=== PATIENT | female | born 1990 | race Caucasian/White ===

== ENCOUNTER 2017-06-27 08:28 | Day surgery (SDC) | payer OTHER ==
[2017-06-26 13:22] VITALS: BMI 34.9
[~2017-06-27 08:28] MED LIST: LACTATED RINGERS 1,000 ML IV SCH
[2017-06-27 08:55] VITALS: RESP 16; TEMP 97.8
[2017-06-27] MEDS ORDERED: LIDOCAINE 1% 20 ML VIAL (10MG/ML) FOR IV START INTRADERMA ONE (09:24)
[2017-06-27] MEDS ORDERED: PROPOFOL 10 MG/ML 20 ML VIAL IV ONE (09:58)
[2017-06-27] MEDS ORDERED: LIDOCAINE 1% INJ 10MG/ML (20 ML MDV) ONE (09:58)
--- NOTE | 2017-06-27 09:59 | P.GSHP ---
History of Present Illness H&P Date: 06/27/17 Chief Complaint: Diarrhea This a 26-year-old female who's had chronic issues with diarrhea. Patient is today for colonoscopy. Past Medical History Past Medical History: No Reported History Additional Past Medical History / Comment(s): sharp lower abd pain with tar colored stools History of Any Multi-Drug Resistant Organisms: None Reported Past Surgical History: Orthopedic Surgery, Tonsillectomy Additional Past Surgical History / Comment(s): tendon repair right knee,laser proc left eye Past Anesthesia/Blood Transfusion Reactions: No Reported Reaction Additional Past Anesthesia/Blood Transfusion Reaction / Comment(s): no hx blood transfusion Smoking Status: Current every day smoker - Past Family History Mother Family Medical History: No Reported History Father Family Medical History: No Reported History Medications and Allergies Home Medications Medication Instructions Recorded Confirmed Type New Stomach Med 1 tab PO DIRECTED 06/26/17 06/27/17 History Ciprofloxacin HCl [Cipro] 500 mg PO Q12HR 06/27/17 06/27/17 History metroNIDAZOLE [Flagyl] 500 mg PO TID 06/27/17 06/27/17 History Allergies Allergy/AdvReac Type Severity Reaction Status Date / Time Penicillins Allergy Anaphylaxis Verified 06/27/17 08:59 Surgical - Exam Vital Signs Temp Pulse Resp BP Pulse Ox 97.8 F 80 16 106/61 97 06/27/17 08:54 06/27/17 08:54 06/27/17 08:54 06/27/17 08:54 06/27/17 08:54 - General well developed - Eyes PERRL - ENT normal pinna - Neck no masses - Respiratory normal expansion - Cardiovascular Rhythm: regular - Abdomen Mild periumbilical pain Abdomen: soft, non tender Assessment and Plan Assessment: Chronic diarrhea. We'll perform colonoscopy.
--- NOTE | 2017-06-27 10:13 | P.OP ---
Date of Procedure: 06/27/17 Preoperative Diagnosis: Diarrhea Postoperative Diagnosis: Colitis of entire colon Procedure(s) Performed: Colonoscopy Anesthesia: MAC Surgeon: Ayden Isabel Pathology: other (Biopsies of right, transverse, left, sigmoid and rectum) Condition: stable Disposition: PACU Description of Procedure: The patient's placed on the endoscopy table in the lateral position. She received IV sedation. Digital rectal exam was performed which revealed no abnormalities. The flexible colonoscope was then placed patient anus and passed throughout the entire colon. The entire colon was inflamed. The mucosa appeared to be erythematous and friable. The scope was then withdrawn and a biopsy the right colon and transverse colon was performed. The mucosa was inflamed. The scope was then brought back into the descending and sigmoid colon there is mild diverticular changes. The mucosa of the descending and sigmoid colon was biopsied. The scope was then brought back the rectum and this was inflamed and a biopsies performed. Patient was then sent to recovery room.
[2017-06-27 10:33] VITALS: BP 110/68; PULSE 70
== END 2017-06-27 10:53 | disposition home or self-care (01) ==
LOC: ORWHC2ENDO 08:28
PROVIDERS: ATTEND Surgery
DX: K52.9 Noninfective gastroenteritis and colitis, unspecified (principal); K57.30 Diverticulosis of large intestine without perforation or abscess without bleeding; F17.200 Nicotine dependence, unspecified, uncomplicated; Z88.0 Allergy status to penicillin
CPT/HCPCS: 45380; 81025; 88305; J2001; J2704

== ENCOUNTER → 2018-03-14 | Outpatient (CLI) | payer OTHER ==
--- NOTE | 2018-03-14 13:55 | XR ---
EXAMINATION TYPE: XR chest 2V DATE OF EXAM: 03/14/2018 COMPARISON: None HISTORY: 27-year-old female with cough TECHNIQUE: Frontal and lateral views FINDINGS: The cardiomediastinal silhouette, aorta, and pulmonary vasculature are within normal limits. Hazy low er lung densities related to overlying soft tissue. No consolidation or pleural effusion. IMPRESSION: No acute cardiopulmonary process.
== END | disposition home or self-care (01) ==
LOC: RADXRMAIN 13:01
PROVIDERS: ATTEND Family Medicine
DX: R05 Cough (principal)
CPT/HCPCS: 71046

== ENCOUNTER 2018-05-20 01:44 | Emergency (ER) | payer OTHER ==
[2018-05-20] MEDS ORDERED: SODIUM CHLORIDE 0.9% 1,000 ML IV STA (02:48)
[2018-05-20 03:21] LABS: Basophils % (A) 0 %; Eosinophils # (A) 0.2 k/uL (0-0.7); Eosinophils % (A) 2 %; HCT 42.7 % (34.0-46.0); Lymphocytes # (A) 2.5 k/uL (1.0-4.8); Lymphocytes % (A) 28 %; MCH 28.9 pg (25.0-35.0); MCHC 32.8 g/dL (31.0-37.0); MCV 88.1 fL (80.0-100.0); Mean Platelet Volume 6.8; Monocytes # (A) 0.5 k/uL (0-1.0); Monocytes % (A) 6 %; Neutrophils # (A) 5.6 k/uL (1.3-7.7); Neutrophils % (A) 62 %; Platelet Count 311 k/uL (150-450); RBC 4.84 m/uL (3.80-5.40); RDW 13.2 % (11.5-15.5)
[2018-05-20 03:30] LABS: ALT 44 U/L (9-52); AST 24 U/L (14-36); Albumin 3.9 g/dL (3.5-5.0); Alkaline Phosphatase 49 U/L (38-126); Anion Gap 11 mmol/L; Blood Urea Nitrogen 9 mg/dL (7-17); Calcium 9.4 mg/dL (8.4-10.2); Carbon Dioxide 20 mmol/L (22-30); Chloride 107 mmol/L (98-107); Glucose 79 mg/dL (74-99); Lipase 128 U/L (23-300); Potassium 4.3 mmol/L (3.5-5.1); Sodium 138 mmol/L (137-145); Total Bilirubin 0.3 mg/dL (0.2-1.3); Total Protein 6.6 g/dL (6.3-8.2)
[2018-05-20 03:46] LABS: Amylase <30 U/L (30-110)
[2018-05-20 04:43] LABS: HCG,Quantitative Serum 85788.4 mIU/mL
--- NOTE | 2018-05-20 04:50 | US ---
EXAMINATION TYPE: Transabdominal DATE OF EXAM: 08/28/17 COMPARISON: NONE CLINICAL HISTORY: Pain. Spotting EXAM PERFORMED: Transabdominal (TA) EXAM MEASUREMENTS: GESTATIONAL AGE / DATING Physician Established: (10 weeks/2 days) EDC: 12/14/2018 Dates by LMP: (10 weeks/2 days) EDC: 12/14/2018 Dates by First Scan: No previous this is first scan Dates by Current Scan for: (10 weeks/1 days) EDC: 12/15/2018 MATERNAL ANATOMY Uterus: 10.8 x 6.7 x 8.1 cm Right Ovary: 5.5 x 3.7 x 3.0 cm Left Ovary: 4.5 x 2.4 x 3.2 cm Post CDS / Adnexa: wnl Presence of free fluid: No Presence of corpus luteal cyst: Right ovary measuring 2.6 x 2.6 x 2.4 cm Presence of subchorionic bleed: Yes, measuring 2.4 x 0.7 x 1.0 cm GESTATION / SURVEY CRL: 3.3 cm (10 weeks/1 days) Yolk Sac (normal less than 6mm): 5 mm Heart Rate: 168 bpm Rhythm: Normal IUP: Viable IUP Date of LMP: 03/09/2018 Beta HcG (if available): Not available at this time Viable IUP, measurements consistent with dates. Probable subchorionic bleed IMPRESSION: The ultrasound gestational age is 10 weeks 1 day. Small subchorionic 23 x 7 mm hemorrhage.
--- NOTE | 2018-05-20 05:19 | ED ---
General Adult HPI - General Chief complaint: Vaginal Bleeding Stated complaint: Vaginal Bleeding 10 wks Time Seen by Provider: 05/20/18 02:47 Source: patient, RN notes reviewed Mode of arrival: ambulatory Limitations: no limitations - History of Present Illness Initial comments: 27-year-old female presents to the emergency department for a chief complaint of vaginal bleeding and cramping times 6 hours. Patient states the bleeding is minor but when she wipes she notices blood. She denies soaking a pad. Patient denies any nausea or vomiting. She denies any significant pain other than cramping. Patient states she is concerned about the . Patient states she has had a confirmed intrauterine by ultrasound. Patient has no other complaints at this time including shortness of breath, chest pain, nausea or vomiting, headache, or visual changes. - Related Data Home Medications Medication Instructions Recorded Confirmed New Stomach Med 1 tab PO DIRECTED 06/26/17 06/27/17 Ciprofloxacin HCl [Cipro] 500 mg PO Q12HR 06/27/17 06/27/17 metroNIDAZOLE [Flagyl] 500 mg PO TID 06/27/17 06/27/17 Previous Rx's Medication Instructions Recorded predniSONE 50 mg PO DAILY #60 tablet 06/27/17 Allergies Allergy/AdvReac Type Severity Reaction Status Date / Time Penicillins Allergy Anaphylaxis Verified 05/20/18 01:48 Review of Systems ROS Statement: Those systems with pertinent positive or pertinent negative responses have been documented in the HPI. ROS Other: All systems not noted in ROS Statement are negative. Past Medical History Past Medical History: No Reported History Additional Past Medical History / Comment(s): sharp lower abd pain with tar colored stools History of Any Multi-Drug Resistant Organisms: None Reported Past Surgical History: Orthopedic Surgery, Tonsillectomy Additional Past Surgical History / Comment(s): tendon repair right knee,laser proc left eye Past Anesthesia/Blood Transfusion Reactions: No Reported Reaction Additional Past Anesthesia/Blood Transfusion Reaction / Comment(s): no hx blood transfusion Past Psychological History: No Psychological Hx Reported Smoking Status: Current every day smoker - Past Family History Mother Family Medical History: No Reported History Father Family Medical History: No Reported History General Exam Limitations: no limitations General appearance: alert, in no apparent distress Head exam: Present: atraumatic, normocephalic, normal inspection Eye exam: Present: normal appearance, PERRL, EOMI. Absent: scleral icterus, conjunctival injection, periorbital swelling ENT exam: Present: normal exam, mucous membranes moist Neck exam: Present: normal inspection, full ROM. Absent: tenderness, meningismus, lymphadenopathy Respiratory exam: Present: normal lung sounds bilaterally. Absent: respiratory distress, wheezes, rales, rhonchi, stridor Cardiovascular Exam: Present: regular rate, normal rhythm, normal heart sounds. Absent: systolic murmur, diastolic murmur, rubs, gallop, clicks GI/Abdominal exam: Present: soft, normal bowel sounds. Absent: distended, tenderness, guarding, rebound, rigid External exam: Present: normal external exam. Absent: erythema, swelling, lesions, lacerations, ecchymosis Speculum exam: Present: normal speculum exam. Absent: erythema, vaginal discharge, cervical discharge, vaginal bleeding (No bleeding noted), foreign body, tissue, laceration By manual exam: Present: normal by manual exam. Absent: cervical motion tenderness, adnexal tenderness, adnexal mass, uterine enlargement, uterine tenderness Neurological exam: Present: alert, oriented X3, CN II-XII intact Psychiatric exam: Present: normal affect, normal mood Course Vital Signs 05/20/18 01:45 Temperature 98.1 F Pulse Rate 76 Respiratory 16 Rate Blood Pressure 105/71 O2 Sat by Pulse 96 Oximetry Medical Decision Making - Medical Decision Making 27-year-old female currently 10 weeks presents to the emergency department for a chief complaint of vaginal bleeding. This has been ongoing for the past 6 hours. Patient states she notices blood when she wiped herself. She also admits to lower abdominal cramping. She states cramping is improved somewhat. Vitals are within acceptable limits. On exam patient is well- appearing. patient does not have any significant abdominal tenderness. Speculum exam does not reveal any evidence of blood. Gonorrhea and chlamydia were cultured.CBC and CMP are unremarkable. Beta hCG 85,788. Patient has a positive blood type, does not need RhoGAM. Ultrasound shows a small subchorionic hemorrhage. Gestational age is 10 weeks 1 day with a heart rate of 168. At this time patient is having a threatened miscarriage. Patient will repeat beta hCG in 2 days. She will follow up with [employer] [employer] TECHNICIAN Dr. Sharma. She will return here if she has any worsening symptoms. All questions were answered patient feels comfortable going home. - Lab Data Result diagrams: 05/20/18 02:10 05/20/18 02:10 Lab Results 05/20/18 05/20/18 05/20/18 Range/Units 02:10 02:10 02:10 WBC 9.0 (3.8-10.6) k/uL RBC 4.84 (3.80-5.40) m/uL Hgb 14.0 (11.4-16.0) gm/dL Hct 42.7 (34.0-46.0) % MCV 88.1 (80.0-100.0) fL MCH 28.9 (25.0-35.0) pg MCHC 32.8 (31.0-37.0) g/dL RDW 13.2 (11.5-15.5) % Plt Count 311 (150-450) k/uL Neutrophils % 62 % Lymphocytes % 28 % Monocytes % 6 % Eosinophils % 2 % Basophils % 0 % Neutrophils # 5.6 (1.3-7.7) k/uL Lymphocytes # 2.5 (1.0-4.8) k/uL Monocytes # 0.5 (0-1.0) k/uL Eosinophils # 0.2 (0-0.7) k/uL Basophils # 0.0 (0-0.2) k/uL Sodium 138 (137-145) mmol/L Potassium 4.3 (3.5-5.1) mmol/L Chloride 107 (98-107) mmol/L Carbon Dioxide 20 L (22-30) mmol/L Anion Gap 11 mmol/L BUN 9 (7-17) mg/dL Creatinine 0.56 (0.52-1.04) mg/dL Est GFR (CKD-EPI)AfAm >90 (>60 ml/min/1.73 sqM) Est GFR (CKD-EPI)NonAf >90 (>60 ml/min/1.73 sqM) Glucose 79 (74-99) mg/dL Calcium 9.4 (8.4-10.2) mg/dL Total Bilirubin 0.3 (0.2-1.3) mg/dL AST 24 (14-36) U/L ALT 44 (9-52) U/L Alkaline Phosphatase 49 (38-126) U/L Total Protein 6.6 (6.3-8.2) g/dL Albumin 3.9 (3.5-5.0) g/dL Amylase <30 L (30-110) U/L Lipase 128 (23-300) U/L HCG, Quant 07798.4 mIU/mL Blood Type A Positive Blood Type Confirm Blood Type Recheck CABO Indicated 05/20/18 Range/Units 03:38 WBC (3.8-10.6) k/uL RBC (3.80-5.40) m/uL Hgb (11.4-16.0) gm/dL Hct (34.0-46.0) % MCV (80.0-100.0) fL MCH (25.0-35.0) pg MCHC (31.0-37.0) g/dL RDW (11.5-15.5) % Plt Count (150-450) k/uL Neutrophils % % Lymphocytes % % Monocytes % % Eosinophils % % Basophils % % Neutrophils # (1.3-7.7) k/uL Lymphocytes # (1.0-4.8) k/uL Monocytes # (0-1.0) k/uL Eosinophils # (0-0.7) k/uL Basophils # (0-0.2) k/uL Sodium (137-145) mmol/L Potassium (3.5-5.1) mmol/L Chloride (98-107) mmol/L Carbon Dioxide (22-30) mmol/L Anion Gap mmol/L BUN (7-17) mg/dL Creatinine (0.52-1.04) mg/dL Est GFR (CKD-EPI)AfAm (>60 ml/min/1.73 sqM) Est GFR (CKD-EPI)NonAf (>60 ml/min/1.73 sqM) Glucose (74-99) mg/dL Calcium (8.4-10.2) mg/dL Total Bilirubin (0.2-1.3) mg/dL AST (14-36) U/L ALT (9-52) U/L Alkaline Phosphatase (38-126) U/L Total Protein (6.3-8.2) g/dL Albumin (3.5-5.0) g/dL Amylase (30-110) U/L Lipase (23-300) U/L HCG, Quant mIU/mL Blood Type Blood Type Confirm A Positive Blood Type Recheck Disposition Clinical Impression: Threatened miscarriage, Subchorionic bleed Disposition: HOME SELF-CARE Condition: Good Instructions: Threatened Miscarriage (ED) Additional Instructions: Repeat blood work in 2 days. Follow up with [facility] in one to 2 days. Return to the emergency department if you have any worsening symptoms. Is patient prescribed a controlled substance at d/c from ED?: No Referrals: Elio Groves MD [Primary Care Provider] - 1-2 days Nino Sharma DO [REFERRING] - 1-2 days Time of Disposition: 05:18
[2018-05-20 05:43] VITALS: BP 99/70; PULSE 85; RESP 20; TEMP 98.2
== END 2018-05-20 05:41 | disposition home or self-care (01) ==
LOC: EC 01:44
DX: O20.0 Threatened abortion (principal); Z67.90 Unspecified blood type, Rh positive; O99.331 Smoking (tobacco) complicating pregnancy, first trimester; F17.200 Nicotine dependence, unspecified, uncomplicated; Z88.0 Allergy status to penicillin; Z79.899 Other long term (current) drug therapy; Z3A.10 10 weeks gestation of pregnancy
CPT/HCPCS: 36415; 76801; 80053; 82150; 83690; 84702; 85025; 86900; 86901; 96360; 99284

== ENCOUNTER 2018-12-30 20:37 | Emergency (ER) | payer OTHER ==
[2018-12-30] MEDS ORDERED: SODIUM CHLORIDE 0.9% 1,000 ML IV STA (21:03)
[2018-12-30] MEDS ORDERED: ACETAMINOPHEN TAB 500 MG TAB PO STA (21:03)
--- NOTE | 2018-12-30 21:03 | ED ---
General Adult HPI - General Chief complaint: Vaginal Bleeding Stated complaint: Fever Time Seen by Provider: 12/30/18 20:49 Source: patient Mode of arrival: ambulatory Limitations: no limitations - History of Present Illness Initial comments: Dictation was produced using [employer] dictation software. please excuse any grammatical, word or spelling errors. Chief Complaint: 28-year-old female 5 days status post presents with fever, chills and surgical site pain. History of Present Illness: Patient's 28-year-old female she is 5 days . Patient had a 5 days ago at [facility]. Today she noted that she has been started to have fevers chills. Shows some notes some pain to the right lateral side of the surgical site. Denies any drainage from the surgical site. Patient states she's been passing small clots from her vagina. Denies any purulent discharge from the vagina. Patient states she's been having fever. She measured at home with the baby's thermometer with a temperature 103. Patient otherwise has been feeling unwell. The ROS documented in this emergency department record has been reviewed and confirmed by me. Those systems with pertinent positive or negative responses have been documented in the HPI. All other systems are other negative and/or n oncontributory. PHYSICAL EXAM: General Impression: Alert and oriented x3, not in acute distress HEENT: Normocephalic atraumatic, extra-ocular movements intact, pupils equal and reactive to light bilaterally, mucous membranes moist. Cardiovascular: Heart regular rate and rhythm, S1&S2 audible, no murmurs, rubs or gallops Chest: Lungs clear to auscultation bilaterally, no rhonchi, no wheeze, no rales Abdomen: Bowel sounds present, abdomen soft, non-tender, non-distended, no organomegaly Musculoskeletal: Pulses present and equal in all extremities, no peripheral edema Motor: no focal deficits noted Neurological: CN II-XII grossly intact, no focal motor or sensory deficits noted Skin: Intact with no visualized rashes, surgical site is clean dry and intact. She has tenderness to palpation and some fullness to the right lateral portion of the incision Psych: Normal affect and mood Pelvic exam: Cervical os is closed, no purulent discharge from the os, no adnexal tenderness or cervical motion tenderness ED course: 28-year-old female presents with constitutional symptoms, vaginal bleeding and surgical site pain status post 5 days ago. Vital signs upon arrival shows temperature 90.1, heart rate of 120, rest of vital signs within acceptable limits. Laboratory evaluation obtained. CBC, metabolic panel is grossly unremarkable. Urinalysis shows 6 white blood cells. Urine sent for culture. Has a vaginal ultrasound was obtained showing no retained products of conception. At this point is unclear what patient symptoms are from. Discussed patient case with Dr. Orozco was ammonium hydroxide operator for Dr. Sharma who is patient's deicer tester. She states that there is no clear indication to start any antibiotics at this time. She does agree that patient's clear for discharge. Patient does have an outpatient appointment with Dr. Sharma this week. Return parameters discussed. Patient clear for discharge. - Related Data Home Medications Medication Instructions Recorded Confirmed HYDROcodone/APAP 5-325MG [[place] 1 tab PO Q6HR PRN 12/30/18 12/30/18 5-325] Ibuprofen [Motrin] 600 mg PO Q12H 12/30/18 12/30/18 [id number] Acid 1 cap PO DAILY 12/30/18 12/30/18 [-U Capsule (formulary)] Allergies Allergy/AdvReac Type Severity Reaction Status Date / Time Penicillins Allergy Anaphylaxis Verified 12/30/18 21:15 Review of Systems ROS Statement: Those systems with pertinent positive or pertinent negative responses have been documented in the HPI. ROS Other: All systems not noted in ROS Statement are negative. Past Medical History Past Medical History: No Reported History Additional Past Medical History / Comment(s): sharp lower abd pain with tar colored stools History of Any Multi-Drug Resistant Organisms: None Reported Past Surgical History: Section, Orthopedic Surgery, Tonsillectomy Additional Past Surgical History / Comment(s): tendon repair right knee,laser proc left eye Past Anesthesia/Blood Transfusion Reactions: No Reported Reaction Additional Past Anesthesia/Blood Transfusion Reaction / Comment(s): no hx blood transfusion Past Psychological History: No Psychological Hx Reported Smoking Status: Former smoker Past Alcohol Use History: None Reported Past Drug Use History: None Reported - Past Family History Mother Family Medical History: No Reported History Father Family Medical History: No Reported History General Exam Limitations: no limitations Course Vital Signs 08/05/19 08/05/19 20:41 22:07 Temperature 99.1 F 98.3 F Pulse Rate 120 H 90 Respiratory 20 18 Rate Blood Pressure 134/88 123/78 O2 Sat by Pulse 95 96 Oximetry Medical Decision Making - Lab Data Result diagrams: 12/30/18 21:21 12/30/18 21:21 Lab Results 12/30/18 12/30/18 12/30/18 Range/Units 21:10 21:15 21:21 WBC (3.8-10.6) k/uL RBC (3.80-5.40) m/uL Hgb (11.4-16.0) gm/dL Hct (34.0-46.0) % MCV (80.0-100.0) fL MCH (25.0-35.0) pg MCHC (31.0-37.0) g/dL RDW (11.5-15.5) % Plt Count (150-450) k/uL Neutrophils % % Lymphocytes % % Monocytes % % Eosinophils % % Basophils % % Neutrophils # (1.3-7.7) k/uL Lymphocytes # (1.0-4.8) k/uL Monocytes # (0-1.0) k/uL Eosinophils # (0-0.7) k/uL Basophils # (0-0.2) k/uL Sodium 137 (137-145) mmol/L Potassium 3.9 (3.5-5.1) mmol/L Chloride 108 H (98-107) mmol/L Carbon Dioxide 20 L (22-30) mmol/L Anion Gap 9 mmol/L BUN 11 (7-17) mg/dL Creatinine 0.69 (0.52-1.04) mg/dL Est GFR (CKD-EPI)AfAm >90 (>60 ml/min/1.73 sqM) Est GFR (CKD-EPI)NonAf >90 (>60 ml/min/1.73 sqM) Glucose 91 (74-99) mg/dL Plasma Lactic Acid Oz (0.7-2.0) mmol/L Calcium 8.7 (8.4-10.2) mg/dL Urine Color Yellow Urine Appearance Clear (Clear) Urine pH 7.0 (5.0-8.0) Ur Specific [place] 1.017 (1.001-1.035) Urine Protein Negative (Negative) Urine Glucose (UA) Negative (Negative) Urine Ketones Negative (Negative) Urine Blood Moderate H (Negative) Urine Nitrite Negative (Negative) Urine Bilirubin Negative (Negative) Urine Urobilinogen <2.0 (<2.0) mg/dL Ur Leukocyte Esterase Small H (Negative) Urine RBC 1 (0-5) /hpf Urine WBC 6 H (0-5) /hpf Ur Squamous Epith Cells 5 H (0-4) /hpf Urine Mucus Rare H (None) /hpf Blood Type A Positive Blood Type Recheck No Antibody Screen NEGATIVE Spec Expiration Date 01/02/2019231412/30/18 12/30/18 Range/Units 21:21 21:21 WBC 6.4 (3.8-10.6) k/uL RBC 4.02 (3.80-5.40) m/uL Hgb 11.5 (11.4-16.0) gm/dL Hct 35.2 (34.0-46.0) % MCV 87.5 (80.0-100.0) fL MCH 28.7 (25.0-35.0) pg MCHC 32.8 (31.0-37.0) g/dL RDW 14.2 (11.5-15.5) % Plt Count 280 (150-450) k/uL Neutrophils % 75 % Lymphocytes % 15 % Monocytes % 6 % Eosinophils % 3 % Basophils % 0 % Neutrophils # 4.8 (1.3-7.7) k/uL Lymphocytes # 1.0 (1.0-4.8) k/uL Monocytes # 0.4 (0-1.0) k/uL Eosinophils # 0.2 (0-0.7) k/uL Basophils # 0.0 (0-0.2) k/uL Sodium (137-145) mmol/L Potassium (3.5-5.1) mmol/L Chloride (98-107) mmol/L Carbon Dioxide (22-30) mmol/L Anion Gap mmol/L BUN (7-17) mg/dL Creatinine (0.52-1.04) mg/dL Est GFR (CKD-EPI)AfAm (>60 ml/min/1.73 sqM) Est GFR (CKD-EPI)NonAf (>60 ml/min/1.73 sqM) Glucose (74-99) mg/dL Plasma Lactic Acid Oz 0.8 (0.7-2.0) mmol/L Calcium (8.4-10.2) mg/dL Urine Color Urine Appearance (Clear) Urine pH (5.0-8.0) Ur Specific [place] (1.001-1.035) Urine Protein (Negative) Urine Glucose (UA) (Negative) Urine Ketones (Negative) Urine Blood (Negative) Urine Nitrite (Negative) Urine Bilirubin (Negative) Urine Urobilinogen (<2.0) mg/dL Ur Leukocyte Esterase (Negative) Urine RBC (0-5) /hpf Urine WBC (0-5) /hpf Ur Squamous Epith Cells (0-4) /hpf Urine Mucus (None) /hpf Blood Type Blood Type Recheck Antibody Screen Spec Expiration Date Disposition Clinical Impression: Vaginal bleeding Disposition: HOME SELF-CARE Condition: Good Instructions (If sedation given, give patient instructions): Pelvic Pain in Women (ED) Is patient prescribed a controlled substance at d/c from ED?: No Referrals: None,Stated [Primary Care Provider] - 1-2 days Time of Disposition: 23:21
[2018-12-30 21:33] LABS: Basophils % (A) 0 %; Eosinophils # (A) 0.2 k/uL (0-0.7); Eosinophils % (A) 3 %; HCT 35.2 % (34.0-46.0); HGB 11.5 gm/dL (11.4-16.0); Lymphocytes % (A) 15 %; MCH 28.7 pg (25.0-35.0); MCHC 32.8 g/dL (31.0-37.0); MCV 87.5 fL (80.0-100.0); Monocytes # (A) 0.4 k/uL (0-1.0); Monocytes % (A) 6 %; Neutrophils # (A) 4.8 k/uL (1.3-7.7); Neutrophils % (A) 75 %; Platelet Count 280 k/uL (150-450); RBC 4.02 m/uL (3.80-5.40); RDW 14.2 % (11.5-15.5); WBC 6.4 k/uL (3.8-10.6)
[2018-12-30 21:41] LABS: African American GFR (CKD) >90 (>60 ml/min/1.73 sqM); Anion Gap 9 mmol/L; Blood Urea Nitrogen 11 mg/dL (7-17); Calcium 8.7 mg/dL (8.4-10.2); Carbon Dioxide 20 mmol/L (22-30); Chloride 108 mmol/L (98-107); Glucose 91 mg/dL (74-99); Potassium 3.9 mmol/L (3.5-5.1); Sodium 137 mmol/L (137-145)
[2018-12-30 21:54] LABS: Appearance,Urine Clear (Clear); Bilirubin,Urine Negative (Negative); Blood,Urine Moderate (Negative); Color,Urine Yellow; Glucose,Urine (UA) Negative (Negative); Ketones,Urine Negative (Negative); Leukocyte Esterase,Urine Small (Negative); Mucus,Urine Rare /hpf; Nitrite,Urine Negative (Negative); Protein,Urine Negative (Negative); RBC,Urine 1 /hpf (0-5); Specific Gravity,Urine 1.017 (1.001-1.035); Squamous Epithelial Cell,Urine 5 /hpf (0-4); Urobilinogen,Urine <2.0 mg/dL (<2.0); WBC,Urine 6 /hpf (0-5)
--- NOTE | 2018-12-30 22:25 | US ---
EXAM: US Pelvis Complete, Transabdominal US Pelvis, Transvaginal CLINICAL HISTORY: ITS.REASON US Reason: Pain TECHNIQUE: Real-time transabdominal and transvaginal pelvic ultrasound (complete) with image documentation. Transvaginal imaging was used for better evaluation of the endometrium and adnexa. COMPARISON: No relevant prior studies available. FINDINGS: Uterus/cervix: Uterus (anteverted): 18.2 x 12.3 x 8.5 cm Endometrial Stripe: Not seen No myometrial mass. Right ovary: Not seen No adnexal masses. Normal blood flow. Left ovary: Not seen Free fluid: No free pelvic fluid. Bladder: Unremarkable as visualized. Wall is normal thickness for degree of distention. IMPRESSION: No uterine, ovarian or adnexal masses. Endometrial stripe is not well-visualized ill-defined although no focal masses are seen. No free pelvic fluid may be physiologic.
[2018-12-30 23:37] VITALS: BP 121/58; PULSE 92; RESP 16; TEMP 98.1
== END 2018-12-30 23:37 | disposition home or self-care (01) ==
LOC: EC 20:37
DX: N93.9 Abnormal uterine and vaginal bleeding, unspecified (principal); G89.18 Other acute postprocedural pain; Z88.0 Allergy status to penicillin; Z87.891 Personal history of nicotine dependence; Z98.890 Other specified postprocedural states
CPT/HCPCS: 36415; 76830; 80048; 81001; 83605; 85025; 86850; 86900; 86901; 87040; 87086; 96360; 99284

== ENCOUNTER 2019-10-30 19:54 | Emergency (ER) | payer OTHER ==
[2019-10-30] MEDS ORDERED: SODIUM CHLORIDE 0.9% 1,000 ML IV STA (20:31)
[2019-10-30] MEDS ORDERED: MORPHINE SULFATE 4 MG/ML SYRINGE IV STA (20:31)
[2019-10-30 20:45] LABS: Basophils % (A) 0 %; Eosinophils # (A) 0.2 k/uL (0-0.7); Eosinophils % (A) 2 %; Lymphocytes # (A) 3.2 k/uL (1.0-4.8); Lymphocytes % (A) 31 %; MCH 28.7 pg (25.0-35.0); MCHC 33.3 g/dL (31.0-37.0); MCV 86.4 fL (80.0-100.0); Mean Platelet Volume 8.7; Monocytes # (A) 0.5 k/uL (0-1.0); Monocytes % (A) 5 %; Neutrophils # (A) 6.1 k/uL (1.3-7.7); Neutrophils % (A) 60 %; Platelet Count 271 k/uL (150-450); RBC 4.86 m/uL (3.80-5.40); RDW 13.2 % (11.5-15.5); WBC 10.2 k/uL (3.8-10.6)
--- NOTE | 2019-10-30 20:45 | ED ---
Abdominal Pain HPI - General Chief Complaint: Abdominal Pain Stated Complaint: Abdominal Pain Time Seen by Provider: 10/30/19 20:19 Source: patient Mode of arrival: EMS Limitations: no limitations - History of Present Illness Initial Comments: Carlos a 29-year-old female with history of ulcerative colitis is currently been off medications for 2 years doing to her recent and breast- feeding. She presents the ER today for evaluation of sudden onset stabbing epigastric abdominal pain. Patient reports she ate dinner approximately an hour and half ago she had a seizure solid chips and dip. Approximately 45 minutes later she developed stabbing epigastric abdominal pain she contacted her GI who advised her to come the hospital for further evaluation. Patient has persisted remains in the epigastrium radiates to the back. No associated nausea vomiting or diarrhea. No recent illness. Last ulcerative colitis flare was 2 years ago. - Related Data Home Medications Medication Instructions Recorded Confirmed HYDROcodone/APAP 5-325MG [Pierson 1 tab PO Q6HR PRN 12/30/18 12/30/18 5-325] Ibuprofen [Motrin] 600 mg PO Q12H 12/30/18 12/30/18 [id number] Acid 1 cap PO DAILY 12/30/18 12/30/18 [-U Capsule (formulary)] Allergies Allergy/AdvReac Type Severity Reaction Status Date / Time Penicillins Allergy Anaphylaxis Verified 12/30/18 21:15 Review of Systems ROS Statement: Those systems with pertinent positive or pertinent negative responses have been documented in the HPI. ROS Other: All systems not noted in ROS Statement are negative. Past Medical History Past Medical History: No Reported History Additional Past Medical History / Comment(s): sharp lower abd pain with tar colored stools, colitis History of Any Multi-Drug Resistant Organisms: None Reported Past Surgical History: Section, Orthopedic Surgery, Tonsillectomy Additional Past Surgical History / Comment(s): tendon repair right knee,laser proc left eye Past Anesthesia/Blood Transfusion Reactions: No Reported Reaction Additional Past Anesthesia/Blood Transfusion Reaction / Comment(s): no hx blood transfusion Past Psychological History: No Psychological Hx Reported Smoking Status: Former smoker Past Alcohol Use History: None Reported Past Drug Use History: None Reported - Past Family History Mother Family Medical History: No Reported History Father Family Medical History: No Reported History General Exam - General Exam Comments Initial Comments: Physical Exam GENERAL: Patient is well-developed and well-nourished. Patient is nontoxic and well- hydrated and is in no distress. HENT: Normocephalic, Atraumatic. EYES: PERRL, EOMI PULMONARY: Unlabored respirations. No audible rales rhonchi or wheezing was noted. CARDIOVASCULAR: There is a regular rate and rhythm without any murmurs gallops or rubs. ABDOMEN: Soft and nontender with normal bowel sounds. No McBurneys point tenderness SKIN: Skin is clear with no lesions or rashes and otherwise unremarkable. : Deferred NEUROLOGIC: Patient is alert and oriented x3. Moving all extremities spontaneously MUSCULOSKELETAL: Normal extremities with adequate strength and full range of motion. No lower extremity swelling or edema. No calf tenderness. PSYCHIATRIC: Normal psychiatric evaluation. Limitations: no limitations Course Vital Signs 10/30/19 10/30/19 10/30/19 19:55 19:58 23:49 Temperature 97.6 F 98.7 F Pulse Rate 93 97 Respiratory 18 19 Rate Blood Pressure 138/89 116/82 O2 Sat by Pulse 100 96 Oximetry Medical Decision Making - Medical Decision Making She was seen and evaluated history is obtained from the patient History and physical exam concerning for sudden onset of stabbing epigastric pain that began after eating a meal that did have salad dressing and chips and dip Labs were obtained mild elevation in transaminases mild elevation of lipase Ultrasound was obtained and did reveal large gallstone but no signs of bile duct dilatation or obstruction Patient did receive 2 doses pain medication emergency department reported feeling much better is comfortable with plan for discharge home with antiemetics and pain meds as needed Patient follow up with surgery for outpatient evaluation Return parameters were discussed dietary modifications were discussed with questions pertaining care were answered patient discharged home in stable condition - Lab Data Result diagrams: 10/30/19 20:00 10/30/19 21:19 Lab Results 10/30/19 10/30/19 10/30/19 Range/Units 20:00 20:44 20:44 WBC 10.2 (3.8-10.6) k/uL RBC 4.86 (3.80-5.40) m/uL Hgb 14.0 (11.4-16.0) gm/dL Hct 42.0 (34.0-46.0) % MCV 86.4 (80.0-100.0) fL MCH 28.7 (25.0-35.0) pg MCHC 33.3 (31.0-37.0) g/dL RDW 13.2 (11.5-15.5) % Plt Count 271 (150-450) k/uL Neutrophils % 60 % Lymphocytes % 31 % Monocytes % 5 % Eosinophils % 2 % Basophils % 0 % Neutrophils # 6.1 (1.3-7.7) k/uL Lymphocytes # 3.2 (1.0-4.8) k/uL Monocytes # 0.5 (0-1.0) k/uL Eosinophils # 0.2 (0-0.7) k/uL Basophils # 0.0 (0-0.2) k/uL Sodium (137-145) mmol/L Potassium (3.5-5.1) mmol/L Chloride (98-107) mmol/L Carbon Dioxide (22-30) mmol/L Anion Gap mmol/L BUN (7-17) mg/dL Creatinine (0.52-1.04) mg/dL Est GFR (CKD-EPI)AfAm (>60 ml/min/1.73 sqM) Est GFR (CKD-EPI)NonAf (>60 ml/min/1.73 sqM) Glucose (74-99) mg/dL Calcium (8.4-10.2) mg/dL Total Bilirubin (0.2-1.3) mg/dL AST (14-36) U/L ALT (4-34) U/L Alkaline Phosphatase (38-126) U/L Total Protein (6.3-8.2) g/dL Albumin (3.5-5.0) g/dL Amylase (30-110) U/L Lipase (23-300) U/L Urine Color Light [place] Urine Appearance Cloudy H (Clear) Urine pH 7.0 (5.0-8.0) Ur Specific Thornton 1.020 (1.001-1.035) Urine Protein 1+ H (Negative) Urine Glucose (UA) Negative (Negative) Urine Ketones Trace H (Negative) Urine Blood Moderate H (Negative) Urine Nitrite Negative (Negative) Urine Bilirubin Negative (Negative) Urine Urobilinogen <2.0 (<2.0) mg/dL Ur Leukocyte Esterase Large H (Negative) Urine RBC >182 H (0-5) /hpf Urine WBC 57 H (0-5) /hpf Ur Squamous Epith Cells 2 (0-4) /hpf Urine Bacteria Occasional H (None) /hpf Urine Mucus Rare H (None) /hpf Urine HCG, Qual Not Detected (Not Detectd) 10/30/19 Range/Units 21:19 WBC (3.8-10.6) k/uL RBC (3.80-5.40) m/uL Hgb (11.4-16.0) gm/dL Hct (34.0-46.0) % MCV (80.0-100.0) fL MCH (25.0-35.0) pg MCHC (31.0-37.0) g/dL RDW (11.5-15.5) % Plt Count (150-450) k/uL Neutrophils % % Lymphocytes % % Monocytes % % Eosinophils % % Basophils % % Neutrophils # (1.3-7.7) k/uL Lymphocytes # (1.0-4.8) k/uL Monocytes # (0-1.0) k/uL Eosinophils # (0-0.7) k/uL Basophils # (0-0.2) k/uL Sodium 138 (137-145) mmol/L Potassium 3.2 L (3.5-5.1) mmol/L Chloride 113 H (98-107) mmol/L Carbon Dioxide 18 L (22-30) mmol/L Anion Gap 7 mmol/L BUN 13 (7-17) mg/dL Creatinine 0.64 (0.52-1.04) mg/dL Est GFR (CKD-EPI)AfAm >90 (>60 ml/min/1.73 sqM) Est GFR (CKD-EPI)NonAf >90 (>60 ml/min/1.73 sqM) Glucose 99 (74-99) mg/dL Calcium 8.0 L (8.4-10.2) mg/dL Total Bilirubin 0.3 (0.2-1.3) mg/dL AST 72 H (14-36) U/L ALT 36 H (4-34) U/L Alkaline Phosphatase 64 (38-126) U/L Total Protein 5.8 L (6.3-8.2) g/dL Albumin 3.3 L (3.5-5.0) g/dL Amylase <30 L (30-110) U/L Lipase 398 H (23-300) U/L Urine Color Urine Appearance (Clear) Urine pH (5.0-8.0) Ur Specific Thornton (1.001-1.035) Urine Protein (Negative) Urine Glucose (UA) (Negative) Urine Ketones (Negative) Urine Blood (Negative) Urine Nitrite (Negative) Urine Bilirubin (Negative) Urine Urobilinogen (<2.0) mg/dL Ur Leukocyte Esterase (Negative) Urine RBC (0-5) /hpf Urine WBC (0-5) /hpf Ur Squamous Epith Cells (0-4) /hpf Urine Bacteria (None) /hpf Urine Mucus (None) /hpf Urine HCG, Qual (Not Detectd) Disposition Clinical Impression: Symptomatic cholelithiasis Disposition: HOME SELF-CARE Condition: Stable Instructions (If sedation given, give patient instructions): Biliary Colic (ED), Gallstones (ED) Is patient prescribed a controlled substance at d/c from ED?: No Referrals: Elio Groves MD [Primary Care Provider] - 1-2 days Kai Handy MD [Medical Doctor] - 1-2 days
[2019-10-30] MEDS ORDERED: ONDANSETRON 4 MG/2 ML VIAL IVP STA (20:52)
[2019-10-30 21:06] LABS: Appearance,Urine Cloudy (Clear); Bacteria,Urine Occasional /hpf; Bilirubin,Urine Negative (Negative); Blood,Urine Moderate (Negative); Color,Urine Light Orange; Glucose,Urine (UA) Negative (Negative); Ketones,Urine Trace (Negative); Leukocyte Esterase,Urine Large (Negative); Mucus,Urine Rare /hpf; Nitrite,Urine Negative (Negative); Protein,Urine 1+ (Negative); RBC,Urine >182 /hpf (0-5); Squamous Epithelial Cell,Urine 2 /hpf (0-4); Urobilinogen,Urine <2.0 mg/dL (<2.0); WBC,Urine 57 /hpf (0-5)
--- NOTE | 2019-10-30 21:25 | XR ---
EXAMINATION TYPE: XR ABDOMEN ACUTE W CXR 4 VIEWS DATE OF EXAM: 10/30/2019 COMPARISON: NONE HISTORY: Epigastric pain TECHNIQUE: 2 upright and 2 supine radiographs were obtained. FINDINGS: Chest radiograph: Negative for acute findings. Abdominal radiographs: There is no evidence for pneumoperitoneum. The bowel gas pattern is unremarka ble as there is air throughout nondilated small and large bowel. No sizeable air fluid levels. No ma ss effects are seen. No unusual calcifications. IMPRESSION: No acute radiographic process.
[2019-10-30 21:38] LABS: ALT 36 U/L (4-34); AST 72 U/L (14-36); African American GFR (CKD) >90 (>60 ml/min/1.73 sqM); Albumin 3.3 g/dL (3.5-5.0); Alkaline Phosphatase 64 U/L (38-126); Amylase <30 U/L (30-110); Anion Gap 7 mmol/L; Blood Urea Nitrogen 13 mg/dL (7-17); Carbon Dioxide 18 mmol/L (22-30); Chloride 113 mmol/L (98-107); Glucose 99 mg/dL (74-99); Non-African American GFR(CKD) >90 (>60 ml/min/1.73 sqM); Potassium 3.2 mmol/L (3.5-5.1); Sodium 138 mmol/L (137-145); Total Bilirubin 0.3 mg/dL (0.2-1.3); Total Protein 5.8 g/dL (6.3-8.2)
[2019-10-30] MEDS ORDERED: MORPHINE SULFATE 4 MG/ML SYRINGE IVP STA (23:08)
--- NOTE | 2019-10-30 23:08 | US ---
EXAMINATION TYPE: US gallbladder DATE OF EXAM: 10/30/2019 COMPARISON: CT 2009 CLINICAL HISTORY: abdominal pain, elevated AST/ALT, lipase. Abdominal pain x 3 hours. Elevated AST/AL T, lipase. Diarrhea x 1.5 weeks. EXAM MEASUREMENTS: Liver Length: 16.17 cm Gallbladder Wall: 0.32 cm CBD: 0.37 cm Right Kidney: 10.8 x 5.3 x 5.1 cm Limited due to body habitus. Pancreas: Appears hyperechoic. Tail obscured by overlying bowel gas. Liver: Appears to have a slightly increased echogenicity. Gallbladder: Echogenic focus with posterior shadowing seen within the gallbladder measurin.1 x 2 .0 x 1.1 cm. Evidence for sonographic Huggins's sign: No CBD: Appears wnl. Right Kidney: No hydronephrosis or masses seen IMPRESSION: Large gallstone. No dilated ducts. No focal liver defect.
[2019-10-30] MEDS ORDERED: ONDANSETRON 4 MG ODT STARTER PACK 2 TAB BTL PO STA (23:49)
[2019-10-30] MEDS ORDERED: ACET/COD 300 MG/30 MG STARTER PACK 6 TAB BTL PO STA (23:49)
[2019-10-30 23:50] VITALS: PULSE 97; RESP 19; TEMP 98.7
[2019-10-30 23:51] VITALS: BP 116/82
== END 2019-10-30 23:58 | disposition home or self-care (01) ==
LOC: EC 19:54
DX: K80.20 Calculus of gallbladder without cholecystitis without obstruction (principal); Z88.0 Allergy status to penicillin; Z87.891 Personal history of nicotine dependence
CPT/HCPCS: 36415; 93005; 80053; 82150; 83690; 85025; 81001; 81025; 87086; 74022; 76705; 99285; 96374; 96375; 96376; 96361; J2270; J2405; S0119

== ENCOUNTER 2019-10-31 08:58 | Inpatient (IN) | payer OTHER ==
[2019-10-31] MEDS ORDERED: ACETAMINOPHEN IV (For NPO) 1,000 MG in EMPTY BAG 1 BAG IVPB PRN (11:34)
[2019-10-31] MEDS ORDERED: ONDANSETRON 4 MG/2 ML VIAL IVP PRN (11:35)
[2019-10-31 12:14] LABS: Basophils % (A) 0 %; Eosinophils # (A) 0.2 k/uL (0-0.7); Eosinophils % (A) 3 %; HCT 41.4 % (34.0-46.0); HGB 13.9 gm/dL (11.4-16.0); Lymphocytes # (A) 1.6 k/uL (1.0-4.8); Lymphocytes % (A) 22 %; MCHC 33.6 g/dL (31.0-37.0); MCV 89.2 fL (80.0-100.0); Monocytes # (A) 0.3 k/uL (0-1.0); Monocytes % (A) 5 %; Neutrophils % (A) 69 %; Platelet Count 238 k/uL (150-450); RBC 4.64 m/uL (3.80-5.40); RDW 13.3 % (11.5-15.5); WBC 7.3 k/uL (3.8-10.6)
[2019-10-31] MEDS: SODIUM CHLORIDE 0.9% 1,000 ML IV SCH ×2 (12:15→21:22)
[2019-10-31] MEDS: METOCLOPRAMIDE 5 MG/ML 2 ML VIAL IVP SCH ×2 (12:15→18:43)
[2019-10-31] MEDS: HYDROmorphone 0.5 MG/0.5 ML SYRINGE IVP PRN ×2 (12:21→19:41)
[2019-10-31] MEDS: PANTOPRAZOLE 40 MG/10 ML VIAL IVP SCH (12:25)
[2019-10-31 12:41] LABS: ALT 146 U/L (4-34); AST 109 U/L (14-36); African American GFR (CKD) >90 (>60 ml/min/1.73 sqM); Albumin 3.9 g/dL (3.5-5.0); Alkaline Phosphatase 85 U/L (38-126); Anion Gap 9 mmol/L; Blood Urea Nitrogen 12 mg/dL (7-17); Calcium 8.6 mg/dL (8.4-10.2); Carbon Dioxide 20 mmol/L (22-30); Chloride 111 mmol/L (98-107); Glucose 73 mg/dL (74-99); Non-African American GFR(CKD) >90 (>60 ml/min/1.73 sqM); Potassium 4.2 mmol/L (3.5-5.1); Sodium 140 mmol/L (137-145); Total Bilirubin 0.5 mg/dL (0.2-1.3); Total Protein 6.7 g/dL (6.3-8.2)
--- NOTE | 2019-10-31 18:29 | P.GSCN ---
History of Present Illness Consult date: 10/31/19 Reason for Consult: Acute cholecystitis History of present illness: 29-year-old female was in the ER last night with sudden onset right upper q uadrant pain. Pain radiated to the back. Nausea was present. No vomiting. Pain improved slightly. She was discharged from the ER last night. Liver enzymes were mildly elevated at that time. Ultrasound showed a large gallstone without gallbladder wall thickening. No biliary dilation. She was then admitted to the hospital today because of recurrent/persistent pain. Location is the same. Her liver enzymes have increased further with a normal bili and alkaline phosphatase. ALT and AST are 146 and 109. No change in the color of her skin urine or stool. No history of similar events. No underlying liver disease that she is aware of. Lipase also slightly elevated. Review of Systems The patient denies any acute changes in vision or hearing, no dysphagia or odynophagia, no chest pain or shortness of breath, no dysuria or hematuria, no headache, no runny nose, no rectal bleeding or melena, no unexplained weight loss Past Medical History Past Medical History: No Reported History Additional Past Medical History / Comment(s): ULCERATIVE COLITIS History of Any Multi-Drug Resistant Organisms: None Reported Past Surgical History: Section, Orthopedic Surgery, Tonsillectomy Additional Past Surgical History / Comment(s): tendon repair right knee, laser proc left eye Past Anesthesia/Blood Transfusion Reactions: No Reported Reaction Additional Past Anesthesia/Blood Transfusion Reaction / Comm: no hx blood transfusion Past Psychological History: No Psychological Hx Reported Smoking Status: Former smoker Past Alcohol Use History: None Reported Past Drug Use History: None Reported - Past Family History Mother Family Medical History: No Reported History Additional Family Medical History / Comment(s): CARDIAC ARRYTHMIA Father Family Medical History: Myocardial Infarction ([place]) Medications and Allergies Home Medications Medication Instructions Recorded Confirmed Type Multivitamins, Thera [Multivitamin 1 tab PO DAILY 10/31/19 10/31/19 History (formulary)] Allergies Allergy/AdvReac Type Severity Reaction Status Date / Time Penicillins Allergy Anaphylaxis Verified 10/31/19 11:18 Surgical - Exam Vital Signs Temp Pulse Resp BP Pulse Ox 98.1 F 71 18 114/81 95 10/31/19 09:50 10/31/19 09:50 10/31/19 09:50 10/31/19 09:50 10/31/19 09:50 Physical exam: General: Well-developed, well-nourished HEENT: Normocephalic, sclerae nonicteric Abdomen: Mild right upper quadrant tenderness, nondistended Extremities: No edema Neuro: Alert and oriented Results - Labs 10/31/19 12:05 10/31/19 12:05 Abnormal Lab Results - Last 24 Hours (Table) 10/31/19 Range/Units 12:05 Chloride 111 H (98-107) mmol/L Carbon Dioxide 20 L (22-30) mmol/L Glucose 73 L (74-99) mg/dL AST 109 H (14-36) U/L ALT 146 H (4-34) U/L Diabetes panel 10/31/19 Range/Units 12:05 Sodium 140 (137-145) mmol/L Potassium 4.2 (3.5-5.1) mmol/L Chloride 111 H (98-107) mmol/L Carbon Dioxide 20 L (22-30) mmol/L BUN 12 (7-17) mg/dL Creatinine 0.60 (0.52-1.04) mg/dL Glucose 73 L (74-99) mg/dL Calcium 8.6 (8.4-10.2) mg/dL AST 109 H (14-36) U/L ALT 146 H (4-34) U/L Alkaline Phosphatase 85 (38-126) U/L Total Protein 6.7 (6.3-8.2) g/dL Albumin 3.9 (3.5-5.0) g/dL Calcium panel 10/31/19 Range/Units 12:05 Calcium 8.6 (8.4-10.2) mg/dL Albumin 3.9 (3.5-5.0) g/dL Pituitary panel 10/31/19 Range/Units 12:05 Sodium 140 (137-145) mmol/L Potassium 4.2 (3.5-5.1) mmol/L Chloride 111 H (98-107) mmol/L Carbon Dioxide 20 L (22-30) mmol/L BUN 12 (7-17) mg/dL Creatinine 0.60 (0.52-1.04) mg/dL Glucose 73 L (74-99) mg/dL Calcium 8.6 (8.4-10.2) mg/dL Adrenal panel 10/31/19 Range/Units 12:05 Sodium 140 (137-145) mmol/L Potassium 4.2 (3.5-5.1) mmol/L Chloride 111 H (98-107) mmol/L Carbon Dioxide 20 L (22-30) mmol/L BUN 12 (7-17) mg/dL Creatinine 0.60 (0.52-1.04) mg/dL Glucose 73 L (74-99) mg/dL Calcium 8.6 (8.4-10.2) mg/dL Total Bilirubin 0.5 (0.2-1.3) mg/dL AST 109 H (14-36) U/L ALT 146 H (4-34) U/L Alkaline Phosphatase 85 (38-126) U/L Total Protein 6.7 (6.3-8.2) g/dL Albumin 3.9 (3.5-5.0) g/dL Assessment and Plan (1) Acute cholecystitis Narrative/Plan: 29-year-old female with suspected acute cholecystitis. Elevated liver enzymes raise the possibility of choledocholithiasis. We'll check repeat labs including LFTs and lipase tomorrow. If they increase further make require GI evaluation. Otherwise we'll proceed with laparoscopic, possible open cholecystectomy. Risks of bleeding, infection, bile leak, bile duct injury, retained common bile duct stone, trocar injury, conversion to an open procedure, hernia, anesthesia rela smita complications were reviewed. The patient understands and wishes to proceed. Current Visit: Yes Status: Acute Code(s): K81.0 - ACUTE CHOLECYSTITIS SNOMED Code(s): 43874968
[2019-11-01] MEDS: HYDROmorphone 0.5 MG/0.5 ML SYRINGE IVP PRN ×3 (02:10→11:04)
[2019-11-01] MEDS: METOCLOPRAMIDE 5 MG/ML 2 ML VIAL IVP SCH ×4 (06:00→17:12)
[2019-11-01] MEDS: SODIUM CHLORIDE 0.9% 1,000 ML IV SCH ×4 (06:11→21:01)
[2019-11-01 06:30] LABS: Basophils % (A) 0 %; Eosinophils # (A) 0.2 k/uL (0-0.7); Eosinophils % (A) 4 %; HCT 41.9 % (34.0-46.0); HGB 13.1 gm/dL (11.4-16.0); Lymphocytes # (A) 1.9 k/uL (1.0-4.8); Lymphocytes % (A) 31 %; MCH 27.7 pg (25.0-35.0); MCHC 31.4 g/dL (31.0-37.0); MCV 88.1 fL (80.0-100.0); Monocytes # (A) 0.3 k/uL (0-1.0); Monocytes % (A) 5 %; Neutrophils # (A) 3.7 k/uL (1.3-7.7); Neutrophils % (A) 59 %; Platelet Count 237 k/uL (150-450); RBC 4.75 m/uL (3.80-5.40); RDW 13.2 % (11.5-15.5); WBC 6.2 k/uL (3.8-10.6)
[2019-11-01 06:59] LABS: ALT 115 U/L (4-34); AST 64 U/L (14-36); African American GFR (CKD) >90 (>60 ml/min/1.73 sqM); Albumin 3.6 g/dL (3.5-5.0); Alkaline Phosphatase 78 U/L (38-126); Anion Gap 6 mmol/L; Blood Urea Nitrogen 8 mg/dL (7-17); Calcium 8.4 mg/dL (8.4-10.2); Carbon Dioxide 24 mmol/L (22-30); Chloride 107 mmol/L (98-107); Glucose 86 mg/dL (74-99); Non-African American GFR(CKD) >90 (>60 ml/min/1.73 sqM); Potassium 4.1 mmol/L (3.5-5.1); Sodium 137 mmol/L (137-145); Total Bilirubin 0.6 mg/dL (0.2-1.3); Total Protein 6.4 g/dL (6.3-8.2)
--- NOTE | 2019-11-01 08:44 | HP ---
HISTORY AND PHYSICAL HISTORY OF PRESENT ILLNESS: This is a 29-year-old white female came to the ER last night right upper quadrant pain radiating to the back, nausea, was present. She was in the ER, diagnosed with gallbladder colic and elevated liver enzymes due to significant she had a large gallstone in her gallbladder at that time. Pain in the right upper quadrant. Pain increased at which time she had to come back to the hospital due to severe pain. She had bili and alk phos. Lipase is elevated in the ER, but is now better. She has never had pain like this before. REVIEW OF SYSTEMS: Fourteen-point review of systems negative except for mentioned in HPI. PAST MEDICAL HISTORY: Apparently she has past medical history of ulcerative colitis, tendon repair of her right knee, , orthopedic surgery, tonsillectomy. FAMILY HISTORY: Mother had cardiac arrhythmia. Father myocardial infarction. MEDICATIONS: Home medications are multivitamins. ALLERGIES: PENICILLIN. PHYSICAL EXAMINATION: VITAL SIGNS: Temp 91, pulse 60s-70s, respiratory 16 to 18. Blood pressure 114/81, O2 95%. HEENT normocephalic, atraumatic. ENDOCRINE: BMI is over 40. Generally, she looks obese, grimacing due to pain. She has tenderness to palpation right upper quadrant and in the right flank. EXTREMITIES: No cyanosis, clubbing, edema. Negative McBurney's. Negative Rovsing's on abdominal exam. NEURO: Cranial nerves intact. PSYCH: Fair mood and affect. LABORATORY DATA: Labs reviewed as mentioned above. ASSESSMENT AND PLAN: 1. Acute cholecystitis, gallbladder, cholelithiasis. 2. History of ulcer colitis. 3. Gallbladder colic. 4. Gallbladder removal is the plan. 5. Continue current treatment. MMODL / IJN: [id number] /
[2019-11-01] MEDS: PANTOPRAZOLE 40 MG/10 ML VIAL IVP SCH (10:25)
[2019-11-01] MEDS ORDERED: ONDANSETRON 4 MG/2 ML VIAL IVP ONE (11:04)
[2019-11-01] MEDS ORDERED: HYDROmorphone 1 MG/ML 1 ML SYRINGE IVP PRN (11:34)
[2019-11-01] MEDS ORDERED: SODIUM CHLORIDE 0.9% 50 ML with CLINDAMYCIN 600 MG IV ONE ×2 (12:18)
[2019-11-01] MEDS ORDERED: BUPIVACAINE (PF) 0.5% 30 ML VIAL SQ ONE ×2 (12:28)
[2019-11-01] MEDS ORDERED: LACTATED RINGERS 1,000 ML IV ONE (12:40)
--- NOTE | 2019-11-01 13:39 | P.OP ---
Date of Procedure: 11/01/19 Procedure(s) Performed: PREOPERATIVE DIAGNOSIS: Acute cholecystitis POSTOPERATIVE DIAGNOSIS: Same PROCEDURE: Laparoscopic cholecystectomy SURGEON: Rozina EBL: Minimal see anesthesia record ANESTHESIA: Gen. COMPLICATIONS: None OPERATIVE PROCEDURE: The patient was brought and placed on the operating room table in the supine position. The patient was placed under general anesthesia at that time. The abdomen was prepped and draped in the usual sterile fashion. A small vertical infraumbilical incision was made. The fascia was grasped with the Josh forceps. The fascia was retracted anteriorly. The Veress needle was advanced into the peritoneal cavity. The saline drop test was normal. Insufflation took place up to 15 mmHg. A 5 mm optical trocar was advanced and the peritoneal cavity. 2 additional 5 mm trochars were placed in the right upper quadrant under direct visualization. A 12 mm trocar was advanced into the epigastric incision site. The gallbladder was acutely inflamed with a thickened gallbladder wall. The gallbladder was retracted superiorly and laterally. The peritoneum overlying the infundibulum was bluntly dissected. The patient's cystic duct was visualized. The junction between the cystic duct common and hepatic duct was identified. The cystic duct was then divided after placement of 3 12 mm clips on the patient's side and one on the specimen side. The cystic artery was identified and clipped as well. A small vessel was seen along the gallbladder fossa and clipped as well. The gallbladder was then removed from the liver bed using electrocautery. The gallbladder was then removed from the epigastric trocar site with an Endo Catch bag. The gallbladder fossa was irrigated with saline. There was no evidence of any bleeding or biliary drainage seen. The fascia at the 12 millimeter site was closed using a Grady- Kiara 0 Vicryl stitch. The trochars were then removed. The skin at all 4 sites was closed using a 4-0 Monocryl stitch. Skin glue was utilized on the incision sites. At the end of this procedure the sponge and needle counts were correct. DISPOSITION: Stable to the recovery room
[2019-11-01] MEDS: HYDROcodone/APAP 5-325MG 1 EACH TAB PO PRN (17:10)
[2019-11-02] MEDS: HYDROcodone/APAP 5-325MG 1 EACH TAB PO PRN ×3 (00:19→11:26)
[2019-11-02 06:35] VITALS: RESP 18
[2019-11-02] MEDS: METOCLOPRAMIDE 5 MG/ML 2 ML VIAL IVP SCH (06:39)
[2019-11-02 07:43] LABS: Basophils % (A) 0 %; Eosinophils # (A) 0.2 k/uL (0-0.7); Eosinophils % (A) 2 %; HCT 41.1 % (34.0-46.0); HGB 13.8 gm/dL (11.4-16.0); Lymphocytes # (A) 1.5 k/uL (1.0-4.8); Lymphocytes % (A) 21 %; MCH 29.8 pg (25.0-35.0); MCHC 33.7 g/dL (31.0-37.0); MCV 88.5 fL (80.0-100.0); Monocytes # (A) 0.2 k/uL (0-1.0); Monocytes % (A) 4 %; Neutrophils # (A) 4.9 k/uL (1.3-7.7); Neutrophils % (A) 72 %; Platelet Count 259 k/uL (150-450); RBC 4.64 m/uL (3.80-5.40); WBC 6.9 k/uL (3.8-10.6)
[2019-11-02 07:53] LABS: ALT 86 U/L (4-34); AST 44 U/L (14-36); African American GFR (CKD) >90 (>60 ml/min/1.73 sqM); Albumin 3.7 g/dL (3.5-5.0); Alkaline Phosphatase 74 U/L (38-126); Anion Gap 8 mmol/L; Blood Urea Nitrogen 7 mg/dL (7-17); Calcium 8.7 mg/dL (8.4-10.2); Carbon Dioxide 25 mmol/L (22-30); Chloride 106 mmol/L (98-107); Glucose 112 mg/dL (74-99); Non-African American GFR(CKD) >90 (>60 ml/min/1.73 sqM); Potassium 3.9 mmol/L (3.5-5.1); Sodium 139 mmol/L (137-145); Total Bilirubin 0.4 mg/dL (0.2-1.3); Total Protein 6.4 g/dL (6.3-8.2)
[2019-11-02 08:01] VITALS: BP 104/72; PULSE 87; TEMP 98.4
[2019-11-02] MEDS: PANTOPRAZOLE 40 MG/10 ML VIAL IVP SCH (08:14)
--- NOTE | 2019-11-02 11:50 | P.PN ---
Subjective Progress Note Date: 11/02/19 Principal diagnosis: Acute cholecystitis Patient doing well today. Pain is improved. Liver enzymes decreasing. White blood cell count normal. She would like to go home today. Objective - Vital Signs Vital signs: Vital Signs Temp 98.4 F 11/02/19 07:00 Pulse 87 11/02/19 07:00 Resp 18 11/02/19 07:00 BP 104/72 11/02/19 07:00 Pulse Ox 95 11/02/19 07:00 Intake & Output 11/01/19 11/02/19 11/02/19 18:59 06:59 18:59 Intake Total 1114 Output Total 605 Balance 509 Intake: IV 1054 Oral 60 Output: Urine 600 Estimated Blood Loss 5 Other: # Voids 1 1 - Exam Abdomen: Soft, nondistended, incisions clean and dry, minimal tenderness - Labs CBC & Chem 7: 11/02/19 07:14 11/02/19 07:14 Labs: Abnormal Lab Results - Last 24 Hours (Table) 11/02/19 Range/Units 07:14 Glucose 112 H (74-99) mg/dL AST 44 H (14-36) U/L ALT 86 H (4-34) U/L Assessment and Plan (1) Acute cholecystitis Narrative/Plan: Continue low-fat diet. September discharge. Follow-up one week. Current Visit: Yes Status: Acute Code(s): K81.0 - ACUTE CHOLECYSTITIS SNOMED Code(s): 73814545
--- NOTE | 2019-11-03 02:29 | CONS ---
CONSULTATION DATE OF DICTATION: 11/02/2019 REASON FOR CONSULTATION: Elevated LFTs and abdominal pain. HISTORY OF PRESENT ILLNESS: The patient is a 29-year-old pleasant white female who was admitted to the hospital two nights ago when she presented with severe epigastric and right upper quadrant abdominal pain associated with nausea vomiting that started 2 days ago. She came to the emergency room, had an ultrasound of the gallbladder done and was noted to have gallstones. The patient underwent gallbladder surgery by Dr. Handy yesterday. At the time of the presentation to the hospital was noted to have mild elevation of serum transaminases and hence we are consulted in regards of this issue. The patient today is feeling much better. Abdominal pain has resolved. No further episodes of nausea, vomiting. She has some pain at the site of surgery. PAST MEDICAL HISTORY: Significant for ulcerative colitis. PAST SURGICAL HISTORY: Tonsillectomy, orthopedic surgery, . HOME MEDICATIONS: Multivitamin. ALLERGIES: Allergies to PENICILLIN. SOCIAL HISTORY: No smoking. No alcohol use. FAMILY HISTORY: Mother has some cardiac arrhythmias. Father coronary artery disease, status post ID. REVIEW OF SYSTEMS: CARDIOPULMONARY: No chest pain or shortness of breath. GENITOURINARY: No dysuria or hematuria. MUSCULOSKELETAL: Unremarkable. SKIN: Unremarkable. ENDOCRINE: Unremarkable. PSYCHIATRIC: Unremarkable. NEUROLOGY: Unremarkable. ENT/VISION: Unremarkable. CONSTITUTIONAL: No recent weight loss. No fever, chills, night sweats. PHYSICAL EXAMINATION: Blood pressure 104/72, pulse rate 87, temperature 98. HEENT EXAMINATION: Unremarkable. Conjunctivae pink. Sclerae anicteric. Oral cavity, no lesions. NECK: No JVD or lymph node enlargement. CHEST: Clear to auscultation. HEART: Regular rate and rhythm. ABDOMEN: Soft. Bowel sounds are positive. No organomegaly. EXTREMITIES: No pedal edema. SKIN: No rashes. NEUROLOGIC: Alert and oriented x3. No focal deficits. LABS: Labs from today: WBC 6.9, hemoglobin 13.8, platelets normal. Basic metabolic panel is within normal limits. At the time of admission the hospital AST and ALT are 109 and 146; today it is 44 and 86 respectively. Lipase slightly elevated at 353, but today it is normal. IMPRESSION: This is a patient presents to hospital with acute onset of severe epigastric and right upper quadrant abdominal pain. Ultrasound showed gallstones. She was also noted to have mild elevation of serum transaminases. She underwent gallbladder surgery by Dr. Handy yesterday and serum transaminases have significantly improved. They are only minimally elevated at the present time. Ultrasound did not show any evidence of biliary ductal dilation, likely she has passed CBD stone spontaneously. Patient clinically doing well. In fact, on a regular diet tolerating well. RECOMMENDATIONS: 1. Agree with advancing diet as tolerated. 2. Pain medications as needed. 3. No indication for an ERCP at the present time. 4. Follow LFTs on a close basis. Thank you for this consultation. MMODL / IJN: [id number] /
[2019-11-03] MEDS ORDERED: PANTOPRAZOLE 40 MG TABLET PO SCH (09:00)
== END 2019-11-02 12:05 | disposition home or self-care (01) | DRG 418 ==
LOC: 6PED 09:34 → OBSVTOIN 11-02 09:51
PROVIDERS: ADMIT Family Medicine; ATTEND Family Medicine
PROC: 0FT44ZZ Resection of Gallbladder, Percutaneous Endoscopic Approach (ICD-10-PCS; principal; 2019-11-01 12:00)
DX: K80.62 Calculus of gallbladder and bile duct with acute cholecystitis without obstruction (principal); K51.90 Ulcerative colitis, unspecified, without complications; Z11.59 Encounter for screening for other viral diseases; Z79.899 Other long term (current) drug therapy; Z98.890 Other specified postprocedural states; Z87.891 Personal history of nicotine dependence; Z88.0 Allergy status to penicillin; Z82.49 Family history of ischemic heart disease and other diseases of the circulatory system
CPT/HCPCS: 80053; 81025; 83690; 85025

== ENCOUNTER → 2020-07-20 | Outpatient (CLI) | payer OTHER ==
--- NOTE | 2020-07-20 15:55 | XR ---
EXAMINATION TYPE: XR chest 2V DATE OF EXAM: 07/20/2020 COMPARISON: Chest x-ray March 14, 2018. HISTORY: Covid 19 infection last month with persistent weakness. TECHNIQUE: Frontal and lateral views of the chest are obtained. FINDINGS: There is no new suspicious focal air space opacity, pleural effusion, or pneumothorax seen . The cardiac silhouette size is stable and within normal limits. The osseous structures are intac t. Cholecystectomy clips noted on lateral view. IMPRESSION: No acute process. No significant change from prior.
== END | disposition home or self-care (01) ==
LOC: RADXRMAIN 15:35
PROVIDERS: ATTEND Internal Medicine Sleep Medicine
DX: J18.9 Pneumonia, unspecified organism (principal)
CPT/HCPCS: 71046

== ENCOUNTER → 2021-01-06 | Outpatient (CLI) | payer BC, OTHER ==
[2021-01-06 14:40] VITALS: BP 123/80; PULSE 78; TEMP 98.1; BMI 42.7
[2021-01-06 15:08] LABS: HCT 43.3 % (34.0-46.0); HGB 14.8 gm/dL (11.4-16.0); MCH 29.9 pg (25.0-35.0); MCHC 34.3 g/dL (31.0-37.0); MCV 87.4 fL (80.0-100.0); Platelet Count 323 k/uL (150-450); RBC 4.95 m/uL (3.80-5.40); RDW 14.4 % (11.5-15.5); WBC 8.6 k/uL (3.8-10.6)
--- NOTE | 2021-01-06 15:56 | P.HPBAR ---
Bariatric H&P - History & Physicial H&P Date: 01/06/21 History & Physicial: Visit/CC: initial clinic visit Patient initial contact: Initial weight: Initial weight in pounds: Height: 5 ft 5 in Initial BMI: Last weight: Current weight: 116.573 kg Current weight in pounds: 257.00 Current BMI: 42.7 [place] body weight (based on NIH guidelines): 56.699 kg Excess body weight loss: The patient is a 30 year-old F who presents for Bariatric Assessment. 30-year-old female here today for initial bariatric evaluation. Patient is interested in sleeve gastrectomy. She states she has been considering this for many years. Patient is a history of ulcerative colitis diagnosed proximally 5 years ago. She is known to our service from laparoscopic cholecystectomy 1 ago. Patient with BMI 42.8. No history of upper endoscopy in the past. Patient suffers from mild asthma and hypothyroidism as well. No history of DVT or dysphagia. No tobacco use. Review of Systems The patient denies any acute changes in vision or hearing, no dysphagia or odynophagia, no chest pain or shortness of breath, no dysuria or hematuria, no headache, no runny nose, no rectal bleeding or melena, no unexplained weight loss Past Medical History Past Medical History: No Reported History Additional Past Medical History / Comment(s): ULCERATIVE COLITIS History of Any Multi-Drug Resistant Organisms: None Reported Past Surgical History: Section, Orthopedic Surgery, Tonsillectomy Additional Past Surgical History / Comment(s): tendon repair right knee, laser proc left eye Past Anesthesia/Blood Transfusion Reactions: No Reported Reaction Additional Past Anesthesia/Blood Transfusion Reaction / Comm: no hx blood transfusion Past Psychological History: No Psychological Hx Reported Smoking Status: Never smoker Past Alcohol Use History: None Reported Additional Past Alcohol Use History / Comment(s): started smoking at age 17,smokes 5 cigarettes per day Past Drug Use History: None Reported - Past Family History Mother Family Medical History: No Reported History Additional Family Medical History / Comment(s): CARDIAC ARRYTHMIA Father Family Medical History: Myocardial Infarction (SC) Surgical - Exam Vital Signs Temp Pulse BP 98.1 F 78 123/80 01/06/21 14:36 01/06/21 14:36 01/06/21 14:36 Physical exam: General: Well-developed, well-nourished HEENT: Normocephalic, sclerae nonicteric Abdomen: Nontender, nondistended Extremities: No edema Neuro: Alert and oriented Results - Labs 01/06/21 14:42 Bariatric Assessment & Plan (1) Morbid obesity with BMI of 40.0-44.9, adult Narrative/Plan: 30-year-old female with morbid obesity BMI 42. Risks and benefits of sleeve gastrectomy and gastric bypass discussed in detail with the patient. Realistic expectations regarding degree of weight loss also discussed. Patient remains interested in sleeve gastrectomy. We'll schedule for upper endoscopy in the near future. The risks of bleeding, infection, stenosis, stricture, leak, abscess, fistula formation, peritonitis, poor weight loss, reflux, vomiting, conversion to an open procedure, aborting sleeve gastrectomy, SC, PE, DVT, and were discussed. The patient understands and wishes to proceed. Status: Acute Bariatric Checklist Checklist: Plan: Checklist: EGD: 1. Hiatal hernia: 2. H. Pylori: HgbA1c: Vitamin D: Smoking: Former smoker Primary care physician referral: dr carreon Psychiatry clearance: Cardiology clearance: Sleep study: Diet journal: VTE risk score: VTE risk level: Rehab needs at discharge:
[2021-01-07 01:23] LABS: Hemoglobin A1C 4.7 % (4.0-6.0)
[2021-01-07 16:11] LABS: Folate, Serum >24.0 ng/mL
[2021-01-07 17:12] LABS: ALT 40 U/L (8-44); AST 30 U/L (13-35); African American GFR (CKD) 115.5 (60.0-200.0); Albumin/Globulin Ratio 1.73 (1.60-3.17); Alkaline Phosphatase 67 U/L (41-126); Calcium 9.4 mg/dL (8.7-10.3); Carbon Dioxide 20.1 mmol/L (21.6-31.8); Chloride 108 mmol/L (96-109); Globulin 2.6 g/dL (1.6-3.3); Glucose 81 mg/dL (70-110); Iron 51 ug/dL (50-170); Non-African American GFR(CKD) 99.6 (60.0-200.0); Sodium 142 mmol/L (135-145); Total Bilirubin 0.4 mg/dL (0.2-1.2); Total Protein 7.1 g/dL (6.2-8.2)
== END ==
LOC: BARWHC3 14:10
PROVIDERS: ATTEND Surgery
DX: E66.01 Morbid (severe) obesity due to excess calories (principal); Z68.41 Body mass index [BMI] 40.0-44.9, adult; F17.210 Nicotine dependence, cigarettes, uncomplicated; Z88.0 Allergy status to penicillin
CPT/HCPCS: 80053; 80323; 82306; 82607; 82746; 83036; 83540; 84425; 85027; 93005; 99211

== ENCOUNTER → 2022-08-21 | Outpatient (CLI) | payer BC, OTHER ==
--- NOTE | 2022-08-21 15:24 | XR ---
EXAMINATION TYPE: XR foot complete RT DATE OF EXAM: 08/21/2022 CLINICAL HISTORY: pain TECHNIQUE: Frontal, lateral and oblique images of the right foot are obtained. COMPARISON: None. FINDINGS: There is no acute fracture/dislocation evident. The joint spaces appear within normal darling its. The overlying soft tissue appears unremarkable. IMPRESSION: There is no acute fracture or dislocation. ICD 10 NO FRACTURE, INITIAL EVALUATION
--- NOTE | 2022-08-21 15:25 | XR ---
EXAMINATION TYPE: XR ankle complete RT DATE OF EXAM: 08/21/2022 COMPARISON: NONE HISTORY: Pain TECHNIQUE: Frontal, lateral and oblique images of the right ankle are obtained. COMPARISON: None. FINDINGS: There is no acute fracture/dislocation evident. The joint spaces appear within normal darling its. The overlying soft tissue appears unremarkable. IMPRESSION: There is no acute fracture or dislocation seen.
== END | disposition home or self-care (01) ==
LOC: RADXRMAIN 15:04
PROVIDERS: ATTEND Family Medicine
DX: M79.671 Pain in right foot (principal); M25.571 Pain in right ankle and joints of right foot